=== PATIENT | male | born 1950 | race Caucasian/White ===

== ENCOUNTER → 2024-07-11 | Outpatient (CLI) | payer MEDICARE, SELFPAY ==
--- NOTE | 2024-07-11 | IMM_PTH ---
PATIENT: WILLRAD HERNANDEZ LOC: [facility] U#:[id number] AGE/SX: 74/M ROOM: RE07/11/[address]: Dr. Alexandre Hernandez MD : 1950 BED: DIS: 07/11/2024 SPEC #: [id number] RECD: 07/13/24 11:45 STATUS: DEEDEE REQ #: [id number] NICKOLAS: 07/11/24 00:[address]: Alexandre Hernandez DEPT: IMMUNOHISTOCHEMISTRY RECD BY: Stephen Bose ENTERED: 07/13/24 11:47 SP TYPE: IMMUNO OTHR DR: Dr. Monique Low MD Tissues: TISSUE SURGICALLY REMOVED Procedures: BCL-2 (add) BCL-6 (add) CD10 (add) CD138 (add) CD15 (add) CD20 (add) CD23 (add) CD3 (add) CD30 (add) CD43 (add) CD45 (add) CD5 (add) CD79A (add) CYCLIN (add) KAPPA (add) KI-67 (add) LAMBDA (add) MPO (add) P53 (add) Vimentin (add) MUM1 (add) C-MYC (add) Pankeratin (initial) PHYSICIAN & INSTITUTION [place] [address] SPECIMEN INFORMATION: Tissue Source: Left groin tissue Clinical Info: Left groin mass Specimen Number: [id number] CPT code: 91613,32984n44 METHODOLOGY: Deparaffinized sections of prefer/formalin-fixed tissue or PAP/DQ stained slides are incubated with monoclonal/polyclonal antibodies/oligonucleotide probes. Localization is made via biotin free immunoperoxidase method. Appropriate controls are performed and reacted as expected. Results on target cell population are indicated in the following table: RESULTS: ANTIBODY / CLONE RESULT AE1-3 (AE1/AE3/PCK26) negative CD3 (PS1) positive, small lymphocytes CD5 (SP10) positive, small lymphocytes CD20 (L26) positive CD43 (L60) positive, small lymphocytes CD45 (RP2/18) positive CD79a (11E3) positive CD138 (B-A38) negative Rampart (polyclonal) negative Lambda (polyclonal) negative CD10 (56C6) positive CD15 (MMA) negative CD23 (1B12) positive CD30 (David-H2) negative BCL-2 (bcl-2/100/D5) positive BCL-6 (MG948L/A8) positive Cyclin D1/BCL-1 (SP4) negative MUM1 (MRQ-43) negative C-MYC (Y69) negative MPO (polyclonal) negative Vimentin (V9) positive P53 (DO-7) positive, rare cells Ki-67 (30-9) positive, 15% These tests were developed and their performance characteristics determined by [facility]. They may not have been cleared or approved by the [place]. Food and Drug Administration. The FDA has determined that such clearance or approval is not necessary. The above immunohistochemical/dualISH markers are ordered and reviewed by the Pathologist. INTERPRETATION: Left groin mass, biopsy: Consistent with follicular lymphoma, grade 1. Case has been reviewed in consultation with Dr. Vinson who concurs with the above diagnosis. IDC:LIS [place]/ 07/14/2024
--- NOTE | 2024-07-11 | TISS_PTH ---
PATIENT: WILLARD HERNANDEZ [facility] U#:[id number] AGE/SX: 74/M ROOM: RE07/11/[address]: Dr. Alexandre Hernandez MD : 1950 BED: DIS: 07/11/2024 SPEC #: [id number] RECD: 07/11/24 16:10 STATUS: DEEDEE RELake #: [id number] NICKOLAS: 07/11/24 00:[address]: Alexandre Hernandez DEPT: SURGICAL PATHOLOGY RECD BY: Ramon Moore ENTERED: 07/12/24 07:42 SP TYPE: Tissue Bx TEREZA DR: Dr. Monique Low MD Tissues: TISSUE SURGICALLY REMOVED Procedures: Surgery Specimen Level IV HEADER OPERATION: Left skin biopsy PRE-OP DIAGNOSIS: Left groin mass TISSUE SUBMITTED: Left groin tissue MICROSCOPIC DIAGNOSIS Left groin mass, core biopsy: B-cell lymphoma of center cell origin, low grade. See comment. AM.mr 07/13/2024 COMMENT Immunohistochemistry ([id number]) supports the above diagnosis. FISH for t(14;18) may be ordered if needed. Case has been reviewed in consultation with Dr. Vinson who concurs with the above diagnosis. IDC:LIS MICROSCOPIC DESCRIPTION Slides are reviewed. GROSS DESCRIPTION Received in fixative is one container labeled with the patient's name and designated Left groin tissue. The specimen consists of two elongated pieces of dinero-white to focally congested soft tissue measuring in aggregate 2.5 x 0.2 x 0.1cm. The entire specimen is submitted in one cassette. 07/12/2024 TC:0 [facility]:[id number]
--- NOTE | 2024-07-11 | TISS_PTH ---
PATIENT: WILLARD HERNANDEZ [facility] U#:[id number] AGE/SX: 74/M ROOM: RE07/11/[address]: Dr. Alexandre Hernandez MD : 1950 BED: DIS: 07/11/2024 SPEC #: [id number] RECD: 07/11/24 16:10 STATUS: DEEDEE RELake #: [id number] NICKOLAS: 07/11/24 00:[address]: Alexandre Hernandez DEPT: SURGICAL PATHOLOGY RECD BY: Ramon Moore ENTERED: 07/12/24 07:42 SP TYPE: Tissue Bx TEREZA DR: Dr. 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 See comment. AM.mr 07/13/2024 COMMENT Immunohistochemistry ([id number]) supports the above diagnosis. 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 FISH for t(14;18) may be ordered if needed. Case has been reviewed in consultation with Dr. Vinson who concurs with the above diagnosis. IDC:LIS MICROSCOPIC DESCRIPTION Slides are reviewed. GROSS DESCRIPTION Received in fixative is one container labeled with the patient's name and designated Left groin tissue. The specimen consists of two elongated pieces of dinero-white to focally congested soft tissue measuring in aggregate 2.5 x 0.2 x 0.1cm. The entire specimen is submitted in one cassette. 07/12/2024 TC:0 CPT:84311
== END | disposition home or self-care (01) ==
PROVIDERS: PCP Student in an Organized Health Care Education/Training Program; Referring Provider Surgery; Visit Provider Surgery
DX: R19.00 Intra-abdominal and pelvic swelling, mass and lump, unspecified site (principal)
CPT/HCPCS: 88305; 88341; 88342